=== PATIENT | male | born 2000 | race African-American/Black ===

== ENCOUNTER 2020-03-13 14:11 | Emergency (ER) | payer SELFPAY ==
--- NOTE | 2020-03-13 14:42 | RAD ---
Exam:Right hand 3 views HISTORY: Pain. Trauma one month ago. COMPARISON: None FINDINGS: Preserved joint spaces. No fracture, cortical irregularity or periosteal reaction. Mild lyric kathrine soft tissue swelling at the level of metacarpals. IMPRESSION: No fracture
== END 2020-03-13 15:08 | disposition home or self-care (01) ==
LOC: ERS 14:11
DX: M79.641 Pain in right hand (principal); F17.210 Nicotine dependence, cigarettes, uncomplicated

== ENCOUNTER 2020-09-05 15:36 | Emergency (ER) | payer OTHER, SELFPAY ==
[2020-09-06 12:43] LABS: SARS-CoV-2 MS2 Positive; SARS-CoV-2 N Gene Negative; SARS-CoV-2 S Gene Negative; SARS-CoV-2 by NAA Not Detected (NotDetected); SARS-CoV-2 orf1ab Negative
== END 2020-09-05 16:05 | disposition home or self-care (01) ==
LOC: ERS 15:36
DX: J02.9 Acute pharyngitis, unspecified (principal); R05 Cough; R09.81 Nasal congestion; Z20.828 Contact with and (suspected) exposure to other viral communicable diseases; F17.210 Nicotine dependence, cigarettes, uncomplicated
CPT/HCPCS: 87635; 99283; U0003

== ENCOUNTER 2020-09-24 07:43 | Emergency (ER) | payer SELFPAY ==
--- NOTE | 2020-09-24 08:09 | RAD ---
EXAM: 3 views of the right ankle HISTORY: Ankle pain after basketball injury COMPARISON: None FINDINGS: 3 views of the right ankle shows no evidence of acute fracture or dislocation. No soft tiss ue swelling is seen. No degenerative changes are present. IMPRESSION: No evidence of acute osseous abnormality.
== END 2020-09-24 08:42 | disposition home or self-care (01) ==
LOC: ERS 07:43
DX: S93.401A Sprain of unspecified ligament of right ankle, initial encounter (principal); F17.210 Nicotine dependence, cigarettes, uncomplicated; X50.9XXA Other and unspecified overexertion or strenuous movements or postures, initial encounter; Y93.67 Activity, basketball